=== PATIENT | male | born 1995 ===

== ENCOUNTER 2016-06-07 16:49 | Emergency (ER) | payer BC ==
[2016-06-07] MEDS ORDERED: Gentamicin 0.3% OPHTH.SOLN* 5 ML BTL ONE (18:40)
--- NOTE | 2016-06-07 18:44 | UC ---
Eye Complaint HPI - HPI Summary HPI Summary: patient has had 1.5 days of right eye irritation, itching and purulent drainage. denies any other symptoms. - History of Current Complaint Chief Complaint: UCEye Stated Complaint: PINK EYE Time Seen by Provider: 06/07/16 18:34 Hx Obtained From: Patient Onset/Duration: Sudden Onset, Lasting Days Timing: Constant Severity Initially: Mild Severity Currently: Moderate Location of Injury: Conjunctiva, Sclera Character: Foreign Body Sensation Aggravating Factor(s): Light Associated Signs And Symptoms: Positive: Drainage (Purulent) - Risk Factors Penetrating Injury Risk Factor: Negative Globe Rupture Risk Factors: Negative - Allergies/Home Medications Allergies/Adverse Reactions: Allergies Allergy/AdvReac Type Severity Reaction Status Date / Time No Known Allergies Allergy Verified 06/07/16 18:16 Home Medications: Home Medications NK [No Home Medications Reported] 06/07/16 [History Confirmed 06/07/16] PMH/Surg Hx/FS Hx/Imm Hx Previously Healthy: Yes - Surgical History Surgical History: Yes Surgery Procedure, Year, and Place: eye surgery - Family History Known Family History: Negative: Cardiac Disease, Hypertension - Social History Alcohol Use: Occasionally Substance Use Type: None Smoking Status (MU): Never Smoked Tobacco Review of Systems Constitutional: Negative Skin: Negative Eyes: Eye Redness ENT: Negative Respiratory: Negative Cardiovascular: Negative Gastrointestinal: Negative Genitourinary: Negative Motor: Negative Neurovascular: Negative Musculoskeletal: Negative Neurological: Negative Psychological: Negative All Other Systems Reviewed And Are Negative: Yes Physical Exam Triage Information Reviewed: Yes Appearance: Well-Nourished, Ill-Appearing, Pain Distress Vital Signs: Initial Vital Signs Temp 98.7 F 06/07/16 18:12 Pulse 71 06/07/16 18:12 Resp 18 06/07/16 18:12 BP 138/80 06/07/16 18:12 Pulse Ox 100 06/07/16 18:12 Vital Signs Reviewed: Yes Eye Exam: Normal Eyes: Positive: Conjunctiva Inflamed, Discharge, Other: - sclera is diffusely red, PERRLA, EOMI ENT Exam: Other ENT: Positive: Hearing grossly normal, Pharynx normal, TMs normal Dental Exam: Normal Neck exam: Normal Respiratory Exam: Normal Respiratory: Positive: Chest non-tender, Lungs clear, Normal breath sounds Cardiovascular Exam: Normal Cardiovascular: Positive: RRR, No Murmur, Pulses Normal Abdominal Exam: Normal Abdomen Description: Positive: Nontender, No Organomegaly, Soft Bowel Sounds: Positive: Present Musculoskeletal Exam: Normal Musculoskeletal: Positive: Strength Intact, ROM Intact, No Edema Neurological Exam: Normal Neurological: Positive: Alert, Muscle Tone Normal Psychological Exam: Normal Skin Exam: Normal Eye Complaint Course/Dx - Course Course Of Treatment: hx obtained, exam performed, meds reviewed, dispensed abx for conjunctivitis - Differential Dx/Diagnosis Differential Diagnosis/HQI/PQRI: Conjunctivitis, Keratitis, Periorbital Cellulitis, Orbital Cellulitis, Uveitis Provider Diagnoses: right eye bacterial conjunctivitis Discharge - Discharge Plan Condition: Stable Disposition: HOME Patient Education Materials: Conjunctivitis (ED) Additional Instructions: take the drops as prescribed. Wash hands after applying drops and touching face. change pillow case, wash down glasses or anything that has come in contact with eyes as it is highly contagious.
[2016-06-07] MEDS ORDERED: Gentamicin 0.3% OPTH.OINT* 3.5 GM TUBE ONE (18:53)
[2016-06-07] MEDS ORDERED: Gentamicin 0.3% OPTH.OINT* 3.5 GM TUBE RIGHT EYE ONE (18:55)
== END 2016-06-07 19:10 | disposition home or self-care (01) ==
LOC: UCCORT 16:49
DX: H10.31 Unspecified acute conjunctivitis, right eye (principal)
CPT/HCPCS: 99202; A9270-GY; G0463